=== PATIENT | female | born 1965 | race Caucasian/White ===

== ENCOUNTER 2016-08-14 13:02 | Emergency (ER) | payer MEDICAID ==
[~2016-08-14 13:02] MED LIST: ABILIFY10 MG PO; ACCUNEB DP1.25 MG/3 IH; ALDACTONE DPS25 MG PO; ASA CHILDREN'S81 MG PO; ASPIR 8181 MG PO; BACTRIM DS DPS1 TAB PO; CARDIZEM CD240 M1 PO; CARDURA4 MG PO; CATAPRES-DPS0.1 MG PO; CATAPRES-DPS0.2 MG PO; COREG DPS12.5 MG PO; COREG DPS3.125 MG PO; COREG DPS6.25 MG PO; COREG3.125 MG PO; DELTASONE DPS10 MG PO; DILTIAZEM 24HR240 M1 PO; DULERA 200/58.8 GM IH; HABITROL DPS7 MG PO; HABITROL DPS7 MG TD; KEFLEX-DPS500 MG PO; KLOR-CON M2020 ME1 PO; KLOR-CON20 MEQ PO; LANOXIN DPS0.125 MG PO; LASIX DPS20 MG PO; LASIX DPS80 MG PO; LASIX20 MG PO; LEVAQUIN DPS750 MG PO; NEURONTIN DPS100 MG PO; PEPCID DPS20 MG PO; PEPCID20 MG PO; PRENATAL VIT1 TAB PO; PROAIR HFA8.5 GM IH; PROZAC DPS20 MG PO; SPIRIVA18 MCG PO; TYLENOL325 MG PO; VIBRAMYCIN-DPS100 M2 PO; XARELTO20 MG PO; ZESTRIL DPS20 MG PO; ZESTRIL DPS5 MG PO; ZESTRIL5 MG PO; ZOFRAN4 MG PO
--- NOTE | 2016-09-10 08:22 | ER ---
ADMIT: 08/14/2016 RM/LOC: ER [facility] MR#: [id number] [address] [address] JOANA HUBBARD [address] [place] [address] Emergency Room Report SEX: F AGE: 51 : 1965 DATE: 08/14/2016 ADDENDUM: This patient was seen by myself in the ER 2 days ago for shortness of breath and difficulty breathing. She states this has been going on for a week. When she was here previously, she did not have any edema. Now, she is having edema in her face and in her abdomen and she is concerned about her CHF. She recently filled her medications and started taking them which she had not done for several weeks due to a run of using meth. On physical exam, her O2 saturation is 99%. Her lungs are clear. Vital signs are stable. I did redraw her blood and her BNP was 1372, which was better than it was 2 days ago. She was given a DuoNeb treatment, Lasix 60. I did get walking O2 saturation on her which were normal. I did consult with Dr. Ritter concerning treatment of this patient. She was released. She is to follow up with Dr. Joaquin tomorrow. Please see my T-sheet. JULIANN Aragon / Regulo Ritter MD / modl JOB #: [id number] CC: Regulo Ritter MD, Attending Physician Gino Joaquin MD, Family Physician
== END 2016-08-14 16:53 | disposition home or self-care (01) ==
LOC: ER 13:02
DX: J44.9 Chronic obstructive pulmonary disease, unspecified (principal); I50.9 Heart failure, unspecified; F17.200 Nicotine dependence, unspecified, uncomplicated; Z79.899 Other long term (current) drug therapy

== ENCOUNTER 2016-08-24 08:09 | Inpatient (IN) | payer MEDICAID ==
[~2016-08-24] VITALS: Ht 167.6 cm; Wt 146.4 kg
--- NOTE | ~2016-08-24 | ECH ---
Transthoracic Echocardiography Report (TTE) Demographics Patient Name JOANA HUBBARD Date of Study 08/24/2016 Patient Number [id number] Visit Number [id number] Date of 1965 Room Number 304 Accession Number [id number] Gender Female Age 51 year(s) Referring Eliazar Rae MD Twill Cutter Gauri Henry Physician Geraldo Goode RDCS, MD Physician Interpreting Smooth Muir MD Hydrographer Physician Supervising Ordering Physician Eliazar Rae MD/MARQUESP Nurse Stress Preparation Supervisor Freezing Conclusions Contractility Score Summary Normal Left Ventricular contractility was noted. Summary Technically adequate exam. The estimated left ventricular ejection fraction is 50%. The left ventricle is mildly dilated . Mild concentric left ventricular hypertrophy. The right atrium is mildly dilated. Mild tricuspid regurgitation by color Doppler. There is mild pulmonary hypertension. The pulmonary pressure (RVSP) is 38 mmHg. Procedure Type of Study TTE procedure:Echo Complete SF. Procedure Date Date: 08/24/2016 Start: 02:15 PM Technical Quality: Adequate visualization Indications:Bradicardic A-Fib, non-ischemic cardiomyopathy and Hypertension. Appropriate Use Criteria: 9 Height: 66 inches Weight: 306 pounds BSA: 2.4 m Rhythm: Atrial fibrillation HR: 74 bpm BP: 109/55 mmHg M-Mode/2D Measurements LV Diastolic Dimension: 5.62 cm LV Systolic Dimension: 3.89 cm LV Septum Diastolic: 1.14 cm LV PW Diastolic: 1.15 cm AO Root Dimension: 2.61 cm Cardiac Output: 4.22 l/min LA Dimension: 5.07 cm Cardiac Index: 1.76 l/min*m RV Diastolic Dimension: 4.96 cm LA volume index: 30 ml/m LVOT: 2.04 cm LVOT VTI: 17.45 cm RV Base: 4 cm LV Stroke volume: 57.01 ml RV Mid: 2.9 cm LV Stroke volume index: 23.75 ml/m TAPSE: 1.6 cm TDI-S': 12 cm/s Doppler Measurements AV Peak Velocity: 1.2 m/s MV Peak E-Wave: 1.2 m/s AV Peak Gradient: 5.76 mmHg AV Mean Gradient: 3.98 mmHg MV P1/2t: 48.9 msec LVOT Peak Velocity: 0.91 m/s AV Area (Continuity):2.77 cm MV Area (PHT): 4.5 cm TR Velocity:2.86 m/s PV Peak Velocity: 1.26 m/s TR Gradient:32.72 mmHg PV Peak Gradient: 6.38 mmHg Estimated RAP:5 mmHg Estimated PASP: 37.72 mmHg Estimated RVSP: 38 mmHg E' Septal Velocity: 0.08 m/s E' Lateral Velocity: 0.11 m/s RA Area: 21.17 cm Findings Left Ventricle The left ventricle is mildly dilated . Mild concentric left ventricular hypertrophy. Diastolic function indeterminate due to patient's arrhythmia. Right Ventricle Normal right ventricle structure and function. Left Atrium Normal left atrial size. Right Atrium The right atrium is mildly dilated. Mitral Valve Normal mitral valve structure and function. Mild mitral regurgitation by color Doppler. Aortic Valve The aortic valve was not well imaged. Tricuspid Valve Normal tricuspid valve structure and function. Mild tricuspid regurgitation by color Doppler. There is mild pulmonary hypertension. The pulmonary pressure (RVSP) is 38 mmHg. Pulmonic Valve Normal pulmonic valve structure and function. Trivial pulmonic valve regurgitation by color Doppler. Pericardial Effusion No evidence of pericardial effusion. Miscellaneous Visualized portions of the aortic root and ascending aorta appear normal in size. Pleural Effusion No evidence of pleural effusion. Contractility Score LV regional wall motion:(0-Non visualized 1-Normal 2-Hypokinesis 3-Akinesis 4-Dyskinesis 5-Aneurysm) Signature
--- NOTE | 2016-08-24 15:07 | HP ---
ADMIT: 08/24/2016 RM/LOC: 304 [facility] MR#: [id number] 2620 [facility] [address] [place] [phone] JOANA HUBBARD [address] [address] History and Physical SEX: F AGE: 51 : 1965 DATE OF SERVICE: CHIEF COMPLAINT: Head pain, arm pain, leg pain, dry mouth, abdominal pain, and nausea. HISTORY OF PRESENT ILLNESS: This is a 51-year-old female, who was evaluated in the ER by Dr. Herbert. She is noted to be hypotensive, bradycardic as well as meeting guidelines for sepsis. Did obtain some imaging of the abdomen in the ER, consistent with cholecystitis. Initiated on antibiotics in the ER and referred to me for admission to the ICU. I did give initial orders and the patient is transferred to ICU and I meet at her bedside in room #304. The patient was acutely agitated upon arrival to the floor. She is screaming and wailing. She is literally flailing her arms and her legs around, hitting them on the bed. I do attempt to obtain a history at that time, she complains of dry mouth and sticking her hands in her mouth and easily distracted, disoriented at that time. I am able to ask her about her complaints, she gives me the above predominant complaints. She is unable to tell me when it exactly started, states that had been going on for months. Cannot tell me what is acutely worse. I shared with her the admitting diagnosis. She states those diagnoses are not accurate and requests a second opinion. I ask her why she is so upset and she states that she want ice chips. She was given ice chips. She readily calms down almost immediately, she is able to give history. She is alert and oriented x3. Feels that the ice chips are making her mouth feel better. I do ask her about a previous drug abuse. She does become upset about this question and states that no drugs at this time, she has been sober for several years. She also at that time complains of some urinary retention. I do offer to place a catheter and she refuses a catheter. When I asked her why she refuses catheter, she states that it is her right to refuse the catheter. I explained to her about her diagnoses, about what is currently going on and the medications that she is receiving. She states that she does not believe that these diagnoses are correct and asked for a second opinion. States that she sees Dr. Wood Rebollar, her arrow point attacher, she wants him to come see her as well. The patient is then be helped to a bedside commode. At that time, she again becomes becomes acutely agitated, literally wailing and flailing her arms around and her legs around in the bed because she wants to go use a regular bathroom. At that time, I asked her, if there is something else that is bothering her, if there is anything else we can do and she is acutely upset as seh wants go to the regular bathroom. I am unable to get any further history from her secondary to her agitation. I asked her if she is anxious, if I can give her something for anxiety, she declines. States she has pain but that is not why she is screaming and flailing around. She does tell the nurse that she is doing that because she is upset with the fact that she could not have ice chips first because she is n.p.o. until we figure out exactly what is going on with her severe abdominal pain as well as now due to the fact that she cannot use the regular bathroom and we are asking her to use the bedside commode secondary to the fact that she is hypotensive. ADMIT: 08/24/2016 RM/LOC: 304 [facility] MR#: [id number] [facility] [address] [phone] JOANA HUBBARD [address] [facility] [place] [address] History and Physical SEX: F AGE: 51 : 1965 I was unable to get any further history from the patient because she was agitated and requests that her regular doctor present at the bedside and I explained to her that he is currently not available and that I will manage her care at this time until he does return, and she is okay with that. PAST MEDICAL HISTORY: 1. Atrial fibrillation. 2. Chronic systolic heart failure. 3. Nonischemic cardiomyopathy. 4. COPD. 5. History of methamphetamine abuse. 6. History of alcoholism. 7. Depression. 8. Hypertension. 9. Obesity. MEDICATIONS: She is not able to tell me any of her medications. We are going to have to call her pharmacy and get those reconciled and further delineated. ALLERGIES: NO KNOWN ALLERGIES PER THE MEDICAL RECORD. HOWEVER, NOT ABLE TO OBTAIN THESE FROM THE PATIENT. FAMILY HISTORY: Positive for heart disease, cancer, hypertension, and stroke. It is obtained from the medical record. SOCIAL HISTORY: She lives at home. She has adult children who live with her. She smokes about a pack per day. She does not drink. She does not do drugs anymore, states she has been sober for approximately two years. REVIEW OF SYSTEMS: Diffusely positive, as noted per HPI. PHYSICAL EXAMINATION: VITAL SIGNS: Blood pressure is 88/50, pulse 76, respiratory rate is 20, oxygen saturation 91% on 2 L per nasal cannula. GENERAL: She is alert and oriented x3. She is acutely agitated. She is aggressive and labile. However, then calms down suddenly when she does get the things that she is requesting. She states she is not depressed. She does not feel that she needs to see a psychiatrist at all for her like emotional outbursts. States that she is otherwise doing fine. She said she just gets upset. HEENT: Normocephalic and atraumatic. Extraocular muscles are intact. Pupils equal and responsive to light. She has severely dry mouth. HEART: Bradycardic. LUNGS: Distant bilaterally with a faint wheeze. ABDOMEN: Soft. It is obese. It is diffusely tender. Has positive bowel ADMIT: 08/24/2016 RM/LOC: 304 [facility] MR#: [id number] 2620 [facility] [address], [place] [address] JOANA HUBBARD [address] [facility] [address] [place] [address] History and Physical SEX: F AGE: 51 : 1965 sounds. EXTREMITIES: No clubbing or cyanosis. She does have some associated edema. LABORATORY AND X-RAY DATA: EKG looks like to be atrial fibrillation, she is bradycardic at 53. Chest x-ray does not appear to be acutely changed. Abdominal x-ray, not acutely changed. Abdominal ultrasound consistent with cholecystitis. Blood cultures are drawn and pending. Lactic acid is 0.9. CBC; white blood cell is 8.7, hemoglobin is 12.8, platelets are 246. Sodium is 139, potassium is 4, chloride is 106, bicarb is 25, BUN is 20, creatinine is 1.4, glucose 114, calcium is 8.1, total bilirubin 0.7, total protein 6.7, albumin is 3.2, AST is 36, ALT is 44, lipase is 234, troponin is 0.016, proBNP is 2218, TSH is 5.890. ABG; pH is 7.37, pCO2 is 36, PO2 is 53. ASSESSMENT AND PLAN: 1. Severe sepsis. She does have acute renal failure associated with what appears to be cholecystitis. She is acutely hypotensive. She is maintained on dopamine right now. Maintain her on Zosyn and vancomycin and did give her a liter of fluids, we are going to run her over some maintenance fluids following this. We will just need to monitor her closely secondary to her history of heart failure. However, she is acutely hypotensive and does require the fluids. 2. Acute renal failure. Baseline creatinine is approximately 0.7, she is 1.4 right now. Probably prerenal as she does appear to be quite dry. I do not know what any of her medications are at this point or what exactly she is taking at home. We will have to call and reconcile her medications. We will start her on some fluid resuscitation right now. 3. Urinary retention. The patient states she does have inability to expel her urine. She declines a Mark, I offered this to her multiple times; however, she states she declines it because it is her right to decline it. We will continue to support her. We will attempt to obtain a UA and a micro if she is able to urinate. This is very concerning to me as this could be an obstructive uropathy contributing to her acute renal failure; however, she declines a Mark. 4. Symptomatic bradycardia. Maintained on dopamine right now. She believes she is up to 5 or 10; however, she is on a titration for this. We will ask the [facility] to see the patient as well. We will trend out her cardiac enzymes and obtain a transthoracic echocardiogram. 5. Hypotension. I think it is shock secondary to hypovolemia as well as severe sepsis. 6. Chronic obstructive pulmonary disease exacerbation with hypoxia. She is on vancomycin and Zosyn. I will go ahead and add Levaquin to her regimen as we have severe sepsis at this time. Maintain her on some bronchodilators. I will give her some dose of IV steroids followed by some oral steroids. 7. Acute cholecystitis. The patient does have cholecystitis and abdominal pain been going on for months. She is on antibiotic coverage for this. ADMIT: 08/24/2016 RM/LOC: 304 [facility] MR#: [id number] [facility] [address] [address] JOANA HUBBARD [address] [facility] [address] [place] [address] History and Physical SEX: F AGE: 51 : 1965 She is now in n.p.o. status. She requests a second opinion. We are going to go ahead and get General Surgery on anyway secondary to this finding, ask to give their opinion on her abdominal pain and whether they agree with a diagnosis of acute cholecystitis as well. 8. Acute agitation and labile emotions. This could be likely secondary to her acute illness as well as various diagnoses at this time acutely with sepsis, hypotension, bradycardia, also just acute distress. She does have a history of depression and mood disorders in the past. I offer her a psychiatrist, she declines this, becomes very agitated, and refuses this and states that I have to leave the room and that I should go see a psychiatrist and she wants her regular doctor at this time. The patient is in a guarded condition at this time. She is acutely hypotensive. She is bradycardic. We are going to go ahead and proceed with goal-directed therapy. We will ask the [facility] for their opinion on her bradycardia. She responded to some 1 L normal saline and we will place her on some maintenance fluids following this. We will go ahead and control her pain with some Dilaudid as well as we will request that we get her medications, so we can reconcile those as well. I discussed this plan with the patient, who expressed understanding, was in agreement, and had no further questions. Don Perea MD/ corona JOB #: [id number] CC: Don Perea, Attending Physician Don Perea, Family Physician Gino Joaquin MD
--- NOTE | 2016-08-25 09:33 | CO ---
ADMIT: 08/24/2016 RM/LOC: 304 [facility] MR#: [id number] 2620 [facility] [address] CIELO HUBBARD [address] [address] Consultation SEX: F AGE: 51 : 1965 DATE OF CONSULTATION: 08/24/2016 ATTENDING PHYSICIAN: Gino Joaquin CONSULTING PHYSICIAN: Fernando Saxena MD ADDENDUM: Cielo was seen in consultation, the chart has been reviewed. I have reviewed Don Rivas's note, and I am in agreement with his assessment and plan. Her symptoms are not necessarily consistent with etiology, her gallbladder is the etiology. Even though there was some mild thickening of the gallbladder wall and pericholecystic fluid, I would recommend a HIDA scan to further evaluate for cholecystitis. That has been ordered, and we will have further recommendations pending the test results. Fernando Saxena MD/ mauryl JOB #: [id number] CC: Gino Joaquin, Attending Physician Gino Joaquin, Family Physician
--- NOTE | 2016-08-26 12:39 | ER ---
ADMIT: 08/24/2016 RM/LOC: ER [facility] MR#: [id number] 2620 [facility] [address] [place] [phone] JOANA HUBBARD Karan [address] [address] Emergency Room Report SEX: F AGE: 51 : 1965 DATE: 08/24/2016 ADDENDUM: This is a 51-year-old morbidly obese white female with multiple medical problems. Essentially coming in for back pain. This kind of radiates down to her back, she has a positive Jimenez sign in the right. She has a history of cardiac disease at this time. Also, morbid obesity, chronic systolic failure, atrial fibrillation, she has had hypoxic respiratory failure, I think possibly because of her large size in the past as well. She was actually admitted on 07/24 and then discharged on 07/28. At this time, she was hypotensive, I think that is from her medicine but with her heart failure, we cannot fill her full of a lot of fluid, so we started a dopamine drip on her to bring her pressure up, she would get into 70s, 80/44 at times as well. Ultrasound did show cholecystitis, which we knew she had stones from her previous CT as well. Her CBC is okay. Her Chemistry is okay. Her lactate is fine. She is not septic. Her TSH is up, 5.89. I do not know the significance of that, and of course, her BNP is chronically elevated at 228. Chest x-ray, nothing acute. I spoke with Dr. Perea, covering for Dr. Joaquin. We will have to start her in the unit because of her pressure and then he will address the elevated TSH as well as her gallbladder disease. CONDITION ON DISCHARGE: Critical, but stable. Don Herbert MD/ modl JOB #: [id number] CC: Don Herbert MD, Attending Physician
[2016-08-26] MEDS ORDERED: CARVEDILOL25 MG PO (20:36)
[2016-08-26] MEDS ORDERED: LASIX DPS80 MG PO (20:36)
[2016-08-26] MEDS ORDERED: CARDIZEM CD240 M1 PO (20:36)
[2016-08-26] MEDS ORDERED: PROAIR HFA8.5 GM IN (20:37)
[2016-08-26] MEDS ORDERED: PROZAC DPS20 MG PO (20:37)
[2016-08-26] MEDS ORDERED: ABILIFY10 MG PO (20:37)
[2016-08-26] MEDS ORDERED: ACCUNEB DP0.63 MG/3 IH (20:37)
[2016-08-26] MEDS ORDERED: GABAPENTIN100 MG PO (20:37)
[2016-08-26] MEDS ORDERED: FLAGYL-DPS500 MG PO (20:38)
[2016-08-26] MEDS ORDERED: DELTASONE DPS20 MG PO (20:38)
[2016-08-26] MEDS ORDERED: LEVAQUIN DPS750 MG PO (20:38)
[2016-08-26] MEDS ORDERED: DULERA 200/58.8 GM IH (20:38)
[2016-08-26] MEDS ORDERED: SPIRIVA18 MCG IH (20:39)
--- NOTE | 2016-08-28 13:34 | DS ---
ADMIT: 08/24/2016 RM/LOC: 304 [facility] MR#: [id number] 2620 [facility] [address] [place] [phone] JOANA HUBBARD [address] [address] General Discharge Summary SEX: F AGE: 51 : 1965 ADMISSION DATE: 08/24/2016 DISCHARGE DATE: 08/26/2016 CONSULTS: 1. Cardiology. 2. Surgery. FINAL DIAGNOSES: 1. Abdominal pain. 2. Cholecystitis. 3. Chronic diastolic congestive heart failure. 4. Atrial fibrillation. 5. Chronic obstructive pulmonary disease. 6. Hypertension. 7. Chronic methamphetamine abuse. REASON FOR ADMISSION: See dictated H and P, but briefly, this is a 51-year- old female, presented with abdominal pain. Workup revealed she had cholecystitis. General Surgery was consulted. Cardiology was consulted as well. Drug screen did reveal methamphetamines. Cardiology was consulted for her atrial fibrillation. They did not think she needs any specific change in her treatment. Ultrasound was revealing of cholecystitis as well as the HIDA scan. Given the patient's recent use of drugs and the patient's improvement in symptoms, Surgery wanted her to wait on getting her surgery. She also initially had some acute kidney injury, dehydration, some initial hypotension, hypocalcemia and these all resolved while she was in the hospital. On the night, we reinstituted her oral meds, she was feeling okay on the , she really did not want to go home because she was not wanting to take care of herself and tried to make a lot of excuses for not wanting to go home such as not having scale and being too anxious and then ultimately, she was transitioned to home without any difficulty. We will have her on oral antibiotics at home in the form of: 1. Prednisone 20 mg daily for 5 days. 2. Levaquin 750 mg for 5 days. 3. Metronidazole 500 mg t.i.d. for 5 days. 4. No DURGA inhibitor because of the recent acute kidney injury. She will be on: 1. Diltiazem XR 240 mg daily. 2. Carvedilol 25 mg b.i.d. 3. Lasix 80 mg daily. ADMIT: 08/24/2016 RM/LOC: 304 [facility] MR#: [id number] [address] [facility] [address] [place] [phone] JOANA HUBBARD [address] [facility] [address] [place] [address] General Discharge Summary SEX: F AGE: 51 : 1965 4. ProAir one to two puffs q.i.d. 5. Albuterol nebulizer q.4 hours p.r.n. 6. Gabapentin 100 mg t.i.d. She has: 1. Aripiprazole 10 mg at bedtime. 2. Prozac 60 mg daily. 3. Spiriva 1 puff daily. 4. Dulera 200/5 two puffs p.o. b.i.d. DISCHARGE INSTRUCTIONS: She will see me back hopefully as needed and Surgery in 1 to 2 weeks. She will be on low-fat and low-salt diet and she should continue to do her daily weights. Gino Joaquin MD/ corona JOB #: [id number] CC: Gino Joaquin MD, Attending Physician Gino Joaquin MD, Family Physician
--- NOTE | 2016-08-31 08:55 | CO ---
ADMIT: 08/24/2016 RM/LOC: 304 [facility] MR#: [id number] [address] [facility] [address] [place] [phone] CIELO HUBBARD [address] [address] Consultation SEX: F AGE: 51 : 1965 DATE OF CONSULTATION: 08/24/2016 ATTENDING PHYSICIAN: Don Perea CONSULTING PHYSICIAN: Fernando Saxena MD REASON FOR CONSULTATION: Abdominal pain, probable cholecystitis. HISTORY OF PRESENT ILLNESS: Cielo is a pleasant 51-year-old female, who states that she has had abdominal pain ever since she developed "edema." She believes this happened several months ago. Her pain has been going on and off and is sharp in nature and generalized throughout her abdomen. She has also felt nauseous from this and actually had multiple times emesis yesterday. At that time, her emesis was dark in color. Today, she currently denies any emesis, hematemesis, diarrhea, or constipation. She states that she has had been having normal bowel movements, however, they have just been darker than usual. She has also noticed swelling into her legs and hands. PAST MEDICAL HISTORY: Significant for: 1. Heart failure. 2. Atrial fibrillation. 3. COPD. 4. Hypertension. 5. Medication noncompliance. PAST SURGICAL HISTORY: Surgery for foreign body removal in her left buttock and right thigh. Foreign bodies were bolus according to the patient. ALLERGIES: NO KNOWN DRUG ALLERGIES. MEDICATIONS: Well documented in chart. FAMILY HISTORY: Mom had her gallbladder out approximately six years ago. SOCIAL HISTORY: Positive for methamphetamine use and tobacco use. Denies alcohol use. REVIEW OF SYSTEMS: CONSTITUTIONAL: The patient has had on and off fevers, chills, and night sweats for the last six months. The rest of comprehensive 10-point review of systems was performed and all other systems are negative. PHYSICAL EXAMINATION: GENERAL: The patient is in no acute distress. She is alert and oriented, but somnolent. HEENT: Head is normocephalic and atraumatic. EOMS are intact. Conjunctivae free of icterus, erythema, or pallor. Pinnae, free of deformities. Nose, midline. No tracheal deviation. NECK: Supple. SKIN: Negative for jaundice, clubbing, edema, pallor, or cyanosis. LUNGS: Normal respiratory effort. Clear to auscultation bilaterally. ADMIT: 08/24/2016 RM/LOC: 304 [facility] MR#: [id number] [address] [address] CIELO HUBBARD [address] [place] [address] Consultation SEX: F AGE: 51 : 1965 HEART: Regular rate and rhythm. No murmurs noted. ABDOMEN: Distended, but soft, tender diffusely throughout abdomen. NEURO: Grossly intact. LABORATORY DATA: Grossly normal. DIAGNOSTIC IMAGING: Ultrasound revealed mild gallbladder wall thickening with some pericholecystic fluid. ASSESSMENT: Acute cholecystitis. PLAN: Clinically, the patient does not appear to be a gallbladder diagnosis at this time, so we will further evaluate this with a HIDA scan. This is also recommendation per Dr. Saxena. We will see the HIDA scan shows and base our management of that. The patient is in agreement of this plan, had all her questions answered, and would like to proceed. Because of this, I will give her ice chips and sips for now. Thanks for the consultation of this patient. JULIANN Cornell / Fernando Saxena MD / corona JOB #: [id number] CC: Don Perea, Attending Physician Don Perea, Family Physician
--- NOTE | 2016-09-23 12:32 | CO ---
ADMIT: 08/24/2016 RM/LOC: 304 [facility] MR#: [id number] [address] [facility] [address] [place] [phone] CIELO HUBBARD [address] [address] Consultation SEX: F AGE: 51 : 1965 DATE OF CONSULTATION: 08/24/2016 ATTENDING PHYSICIAN: Don Perea CONSULTING PHYSICIAN: Molina Chow MD REASON FOR CONSULT: Atrial fibrillation and bradycardia. Daphne Sims RN, scribing for Dr. Chow. HISTORY OF PRESENT ILLNESS: Cielo is a 51-year-old female I have been asked to see in Cardiology consultation by Dr. Perea for history of atrial fibrillation and current issues with bradycardia. She was admitted for gastroenteritis and severe dehydration. She has had emesis for a few days. Currently, she is sedated and not responding verbally much but does wake up to verbal stimuli but falls right back to sleep. She follows with Dr. Wood Rebollar. She has history of paroxysmal atrial fibrillation and diastolic heart failure. Last echocardiogram was in November of 2015, showing normal ejection fraction with LVH. She has history of hypertension, diabetes, tobacco use, and methamphetamine use with current drug screen positive for amphetamines. When she presented, she was hypotensive and bradycardiac, meeting guidelines for sepsis and she was vomiting quite a bit and imaging of abdomen was consistent with cholecystitis. She was started on antibiotics, transferred to ICU, and is now on dopamine drip at 10 mcg per kilos per minute. Currently, she has improved heart rate to 80 and blood pressure of 93/63. She is afebrile and again was given Ativan because she was severely agitated and so is sedated currently. She denies any use of methamphetamine; however, she does have a positive drug screen. Lab work shows normal liver enzymes. Creatinine is 1.4 and it does not look like she is producing much urine. She is getting fluid boluses currently. PAST MEDICAL HISTORY: Polysubstance abuse, chronic diastolic heart failure, paroxysmal atrial fibrillation, hypertension, hyperlipidemia. ALLERGIES: NO KNOWN MEDICATION ALLERGIES. MEDICATIONS: Scheduled medications include: 1. Vancomycin 1.5 g IV every 12 hours. 2. Zosyn 3.375 g IV every 8 hours. 3. DuoNeb inhalation q.i.d. FAMILY HISTORY: Noncontributory. SOCIAL HISTORY: Cielo is single. She lives at home. She does have children who I believe live with her. REVIEW OF SYSTEMS: Unobtainable due to the patient's sedated state. PHYSICAL EXAMINATION: VITAL SIGNS: Blood pressure 93/63, heart rate 80, ADMIT: 08/24/2016 RM/LOC: 304 [facility] MR#: [id number] [address] [address] [facility] [address] [facility] [place] [place] [address] Consultation SEX: F AGE: 51 : 1965 respirations 16, temperature 96.0, oxygenation 97% on O2. GENERAL: Obese and sedated. SKIN: [place], warm and dry. EYES: Sclerae clear. No xanthelasmas. ENT: Oral mucosa is pink and moist. No jugular venous distention or carotid bruits. CHEST: Respirations are even and unlabored. Lungs are clear to auscultation. HEART: Regular rate and rhythm. Normal S1, S2. No murmurs, rubs or gallops. ABDOMEN: Soft and nontender. MUSCULOSKELETAL: Gait is normal. EXTREMITIES: Peripheral pulses palpable. No clubbing, cyanosis or edema. PSYCHIATRIC: Alert and oriented. Mood and affect are appropriate. DIAGNOSTIC DATA: Sodium 139, potassium 4.0, BUN 20, creatinine 1.4, glucose 114. AST 36, ALT 44. TSH 5.89. White blood cell count 8.7, hemoglobin 12.8, hematocrit 41.2, platelets 246. Urine positive for amphetamines. ASSESSMENT AND PLAN: 1. Atrial fibrillation, tachy-aliya. 2. Polysubstance abuse. 3. Gastroenteritis. 4. Hypertension. 5. Hyperlipidemia. 6. Chronic diastolic heart failure. Currently, she is being treated for sepsis secondary to cholecystitis. She is currently on dopamine at 10 mcg per kilos per minute and is maintaining adequate blood pressure and heart rate. I will give her IV fluid bolus and swab for influenza and attempt to wean dopamine off. Gallbladder workup is in progress by primary care. I will check echocardiogram for wall motion abnormalities, valvular abnormalities, or decreased ejection fraction. No need to change any atrial fibrillation medications at this time. There are no atrial fibrillation issues currently. I will continue to follow her closely. Thank you for the consultation. I have read and agree with the documentation that has been completed regarding this visit. By signing this record, I attest that the documentation was completed in my physical presence and is an accurate record of the encounter. Daphne Sims RN / Molina Chow MD / corona JOB #: [id number] CC: Don Perea, Attending Physician Don Perea, Family Physician
== END 2016-08-26 13:57 | disposition home or self-care (01) | DRG 445 ==
LOC: ER 08:09 → 3ICU 10:30
PROVIDERS: ADMIT Internal Medicine
PROC: 3E0234Z Introduction of Serum, Toxoid and Vaccine into Muscle, Percutaneous Approach (ICD-10-PCS; principal; 2016-08-26)
DX: K80.00 Calculus of gallbladder with acute cholecystitis without obstruction (principal); N17.9 Acute kidney failure, unspecified; I95.9 Hypotension, unspecified; I42.9 Cardiomyopathy, unspecified; I11.0 Hypertensive heart disease with heart failure; I50.32 Chronic diastolic (congestive) heart failure; I49.5 Sick sinus syndrome; Z68.42 Body mass index [BMI] 45.0-49.9, adult; J44.1 Chronic obstructive pulmonary disease with (acute) exacerbation; E86.0 Dehydration; I48.0 Paroxysmal atrial fibrillation; E66.01 Morbid (severe) obesity due to excess calories; Z23 Encounter for immunization; E83.51 Hypocalcemia; K52.9 Noninfective gastroenteritis and colitis, unspecified; F15.10 Other stimulant abuse, uncomplicated; F41.9 Anxiety disorder, unspecified; E78.5 Hyperlipidemia, unspecified; F10.21 Alcohol dependence, in remission; F32.9 Major depressive disorder, single episode, unspecified; F17.210 Nicotine dependence, cigarettes, uncomplicated; R33.9 Retention of urine, unspecified; R09.02 Hypoxemia; Z91.14 Patient's other noncompliance with medication regimen

== ENCOUNTER 2016-08-30 14:54 | Emergency (ER) | payer MEDICAID ==
[~2016-08-30 14:54] MED LIST changes: +ACCUNEB DP0.63 MG/3 IH; +CARVEDILOL25 MG PO; +DELTASONE DPS20 MG PO; +FLAGYL-DPS500 MG PO; +GABAPENTIN100 MG PO; +PROAIR HFA8.5 GM IN; +SPIRIVA18 MCG IH
--- NOTE | 2016-08-31 10:25 | NUR ---
Pt triggered as a high ED user. Attempted to contact pt. No answer, voice mail message left.
--- NOTE | 2016-09-01 03:47 | ER ---
ADMIT: 08/30/2016 RM/LOC: ER [facility] MR#: [id number] [address] [facility] [address] [place], [place] [address] HAYDEE JOANA Russo [address] [address] Emergency Room Report SEX: F AGE: 51 : 1965 DATE: 08/30/2016 TIME: 1454 hours. PRIMARY CARE: Dr. Joaquin. Please refer to my T-sheet for a complete H and P. SUBJECTIVE: Briefly, the patient is a 51-year-old, who comes in with some kind of pressure in her upper chest. She has been under a lot of stress recently. She has a known history of meth use. She says she has been clean for months. She also smokes, but she is down to maybe 1 cigarette a day. She also has a known history of gallbladder problems. She rates pain as 6/10. She was just concerned and came in once evaluated. PHYSICAL EXAMINATION: VITAL SIGNS: Blood pressure 179/98, pulse 115, respirations 19, temperature 96.9, sat 96%. GENERAL: She is anxious. HEENT: Grossly normal. LUNGS: Clear. HEART: Irregularly regular. No murmur. ABDOMEN: Soft and nontender. EXTREMITIES: No edema at this time. No pain in the calves. EMERGENCY DEPARTMENT COURSE: Chest x-ray revealed no acute disease. EKG was atrial fibrillation with rate 103. No hyperacute changes. CBC was normal except white count of 11.5, hemoglobin 16.2. Chemistries were normal except for CO2 of 33, glucose 109. Her troponin was negative. We originally offered her something for the pain, she refused. She said she was feeling much better. She felt better that things had checked out okay here at this time. I reiterated the need to avoid meth and smoking. She understood this. She said she would follow up. She did not want to stay. ASSESSMENT: 1. Atypical chest pain. 2. History of meth use. 3. Nicotine abuse. PLAN: Avoid meth and nicotine, return if worse. Continue her medications. Follow up with Dr. Joaquin on . She has an appointment. Kole Larkin MD/ corona JOB #: [id number] CC: Kole Larkin MD, Attending Physician Gino Joaquin MD, Family Physician
== END 2016-08-30 16:30 | disposition home or self-care (01) ==
LOC: ER 14:54
DX: R07.89 Other chest pain (principal); F17.210 Nicotine dependence, cigarettes, uncomplicated

== ENCOUNTER 2016-09-02 20:18 | Emergency (ER) | payer MEDICAID ==
--- NOTE | 2016-09-05 14:54 | ER ---
ADMIT: 09/02/2016 RM/LOC: ER [facility] MR#: [id number] [address] [place], [place] [address] JOANA HUBBARD [address] [address] Emergency Room Report SEX: F AGE: 51 : 1965 DATE: 09/02/2016 HISTORY OF PRESENT ILLNESS: The patient is a 51-year-old female with multiple problems comes in with body aches, wheezing for 2 days, abdominal pain for 2 days, in the sense she is tender allover. PAST MEDICAL HISTORY: She has a history of hypertension, COPD, AFib, CHF, asthma, and meth abuse. Recently was admitted for cholecystitis and discharged, at that time she was septic. PHYSICAL EXAMINATION: VITAL SIGNS: Blood pressure 140/82, with a pulse of 72, respirations 16, temp is 97.4, O2 saturations 96%. GENERAL: She seems pretty rough. She is afebrile, alert, mildly anxious. HEENT: Normal inspection. NECK: Supple. RESPIRATIONS: No distress. I am unable to hear any wheezing. ABDOMEN: Obese, hyperactive bowel sounds. CVS: Regular in rate and rhythm. SKIN: Good color and turgor. EXTREMITIES: Nontender. NEURO: Oriented x4. Mood and affect are appropriate. LABORATORY DATA: White blood cell count 11.2. Chemistry normal. BNP is 2683, with a flu screen negative. CLINICAL IMPRESSION: She has a history of congestive heart failure, body aches, myalgia, diarrhea. The patient given some Imodium, given some Toradol for the discomfort. Encouraged to follow up with primary provider and hydrate. The patient really walked without any difficulty. JULIANN Matos / Juan Fletcher MD / mauryl JOB #: [id number] CC: Juan Fletcher MD, Attending Physician Gino Joaquin MD, Family Physician
== END 2016-09-02 23:13 | disposition home or self-care (01) ==
LOC: ER 20:18
DX: M79.1 Myalgia (principal); R19.7 Diarrhea, unspecified; I10 Essential (primary) hypertension; J44.9 Chronic obstructive pulmonary disease, unspecified; J45.909 Unspecified asthma, uncomplicated; F17.210 Nicotine dependence, cigarettes, uncomplicated